=== PATIENT | female | born 1985 | race Caucasian/White ===

== ENCOUNTER 2022-06-16 21:07 | Emergency (ER) | payer OTHER, SELFPAY ==
[2022-06-16 21:10] VITALS: BP 144/95; PULSE 98; RESP 18; TEMP 36.6; O2SAT 96
--- NOTE | 2022-06-16 23:30 | PC.NURSE ---
Pt ambulatory unassisted to intake desk. Requesting information on which EMS crew transported pt here. This RN explained that I would be able to check on info. after completing triage on arriving pts. Pt also requested to know what her blood glucose was for EMS. Explained that I may not have access to that info, but I would check when able to. Pt ambulated away from desk, stating Well they told me it was '20' so I want it checked!
[2022-06-17 00:01] LABS: Glucose Point of Care 92 mg/dl (65-105)
--- NOTE | 2022-06-17 00:10 | PC.NURSE ---
Pt ambulatory up to desk, unassisted. States with clear, even voice I want my sugar checked because I know they said it was 20. This RN looked at EMS run sheet for pt, which listed blood sugar as 109 en route. Verbalized this info to pt, who then states You're lying. I want my sugar checked! Order placed, and surface water technician checked pt's blood glucose. Fingerstick glucose was 92 per ED glucometer.
[2022-06-17 01:19] LABS: Basophils Percent Auto 0.6 % (0.2-1.2); Eosinophils Absolute Auto 0.2 K/mm3 (0-0.3); Eosinophils Percent Auto 2.9 % (0-4.4); Hematocrit 41.4 % (37.0-47.0); Hemoglobin 13.4 g/dL (12.0-15.0); Immature Granulocyte Absolute 0.01 K/mm3 (0.00-0.031); Immature Granulocyte Percent A 0.1 % (0-0.5); Lymphocytes Absolute Auto 2.68 K/mm3 (0.9-3.2); Mean Corpuscular HGB Conc 32.4 g/dl (32-36); Mean Corpuscular Hemoglobin 31.5 pg (26-34); Mean Corpuscular Volume 97.2 fl (80-100); Mean Platelet Volume 9.8 fl (7.4-10.4); Monocytes Absolute Auto 0.8 K/mm3 (0.1-0.6); Monocytes Percent Auto 11.3 % (2.6-8.5); Neutrophils Absolute Auto 3.5 K/mm3 (1.3-6.7); Neutrophils Percent Auto 48.1 % (45.5-73.1); Platelet Count Result 250 k/mm3 (150-375); Red Blood Count 4.26 M/mm3 (4.2-5.4); Red Cell Distribution Width 14.6 % (11.5-14.5); White Blood Count 7.3 K/mm3 (4.5-10.0)
[2022-06-17 01:33] LABS: Add Urine Microscopic? YES; Appearance Urine Cloudy (Clear); Bacteria Urine Trace /hpf; Bilirubin Urine Negative (Negative); Blood Urine Negative (Negative); Color Urine Amber (Yellow); Glucose Urine UA Negative (Negative); Ketones Urine Negative (Negative); Leukocyte Esterase Ur 1+ LEU/UL (Negative); Mucus Urine Few /lpf; Nitrate Urine Negative (Negative); Protein Urine Negative (Negative); Specific Grav Ur 1.027 (1.001-1.035); Squamous Epithelial Cell Urine Many /hpf (Few); Urobilinogen Urine Negative mg/dL (<2.0)
[2022-06-17 01:37] LABS: Alanine Aminotransferase 28 U/L (6-35); Alkaline Phosphatase 62 U/L (38-126); Anion Gap 11 mmol/L (8-16); Aspartate Amino Transferase 29 U/L (14-36); Bilirubin,Total 0.4 mg/dL (0.2-1.3); Blood Urea Nitrogen 11 mg/dL (7-17); Carbon Dioxide 19 mmol/L (22-30); Chloride 109 mmol/L (98-107); Estimated CRCL calculation 108 ml/min; Estimated Glomerular Filt Rate > 60; Glucose 91 mg/dL (65-110); Lipase 37 U/L (23-300); Potassium 3.7 mmol/L (3.4-5.0); Sodium 139 mmol/L (137-145)
--- NOTE | 2022-06-17 03:50 | ED.GENADULT ---
HPI - General Adult General Chief complaint: Nausea/Vomiting/Diarrhea Stated complaint: N/V history of colitis Time Seen by Provider: 06/17/22 01:50 History of Present Illness HPI narrative: Is a 37-year-old female presenting ED chief complaint abdominal pain. Patient's was seen at [facility] where she was diagnosed with colitis and treated with Cipro and Flagyl. For reasons the patient cannot explain to me at some point during her trip there she was admitted to their psychiatric unit for 24 hours before being discharged. She has a history of bipolar disorder and is intermittently compliant with her medications. Patient right now says that she just does not feel well, she feels dehydrated has been having diarrhea. The patient notes that she has had decreased oral intake over the last several days. And that she has felt dizzy when she stands. Related Data Allergies Allergy/AdvReac Type Severity Reaction Status Date / Time bee venom protein (honey bee) Allergy Anaphylaxis Verified 06/17/22 00:25 Review of Systems Review of Systems: CONSTITUTIONAL: Denies night sweats. EYES: No eye pain ENT: Denies rhinorrhea CARDIOVASCULAR: Denies palpitations RESPIRATORY: Denies hemoptysis GASTROINTESTINAL: Denies hematemesis GENITOURINARY: Denies hematuria. SKIN: Denies rash MUSCULOSKELETAL: Denies myalgia. NEUROLOGIC: Denies weakness. PSYCHIATRIC: Denies delusions Exam Narrative: APPEARANCE: No apparent distress. Head atraumatic. EYES: PERRLA/EOMI, NOSE: Normal no drainage NECK: Supple, Trachea midline RESPIRATORY: CTAB, No increased work of breathing. CARDIOVASCULAR: S1S2 appreciated ABDOMINAL: Abdomen is obese but I was unable to elicit any tenderness with this special attention plate to the left lower quadrant. There is no guarding or rebound. Bowel sounds are present. MUSCULOSKELETAl: No obvious deformities NEURO: Alert. Moving 4/4 extremities SKIN:: Warm, dry. Normal color PSYCHIATRIC: Normal affect Course Vital Signs Vital signs: Vital Signs Temperature 97.9 F 06/16/22 21:10 Pulse Rate 98 06/16/22 21:10 Respiratory Rate 18 06/16/22 21:10 Blood Pressure 144/95 H 06/16/22 21:10 Pulse Oximetry 96 06/16/22 21:10 Oxygen Delivery Room Air 06/16/22 21:10 Temperature 97.9 F 06/16/22 21:10 Pulse Rate 98 06/16/22 21:10 Respiratory Rate 18 06/16/22 21:10 Blood Pressure 126/116 H 06/17/22 05:05 Pulse Oximetry 96 06/16/22 21:10 Oxygen Delivery Room Air 06/16/22 21:10 Medical Decision Making MDM Narrative Medical decision making narrative: This is a 37-year-old female with history of bipolar disorder and recent diagnosis of colitis presenting to ED chief complaint of nausea and vomiting. Her physical exam here is normal. She is not vomiting. Her abdominal exam is benign. I have asked her what I can do for her today and the patient became irate and told me that I did not care about her. 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 Eventually she calmed down and was agreeable to receiving 2 L of fluid for rehydration. Upon re-evaluation the patient has normal vital signs, her laboratory studies have been unremarkable, she has a normal abdominal exam. Her colitis that she was diagnosed with outside hospital was treated appropriately and she has taken the correct medications. I will give the patient a prescription for Zofran if she becomes nauseous. She will be discharged home to follow-up with a primary care physician. Vital Signs Vital Signs: Vital Signs Temperature 97.9 F 06/16/22 21:10 Pulse Rate 98 06/16/22 21:10 Respiratory Rate 18 06/16/22 21:10 Blood Pressure 144/95 H 06/16/22 21:10 Pulse Oximetry 96 06/16/22 21:10 Oxygen Delivery Room Air 06/16/22 21:10 Tem
[2022-06-17] MEDS: SODIUM CHLORIDE 0.9% IV 2,000 ML 999 ML IV CONT (04:13)
[2022-06-17 04:38] VITALS: BP 107/69
[2022-06-17 05:05] VITALS: BP 126/116
== END 2022-06-17 06:30 | disposition home or self-care (01) ==
PROVIDERS: Emergency Provider Emergency Medicine
DX: R11.2 Nausea with vomiting, unspecified (principal); F31.9 Bipolar disorder, unspecified
CPT/HCPCS: 36415; 80053; 81001; 81025; 82948; 83690; 85025; 96360; 96361; 99283; J7030